=== PATIENT | male | born 1985 | race Caucasian/White ===

== ENCOUNTER 2023-10-26 02:41 | Emergency (ER) | payer SELFPAY ==
[~2023-10-26] VITALS: Ht 193 cm; Wt 140.9 kg
[~2023-10-26 02:41] MED LIST: TOPROL XL 25MG25 MG PO
[2023-10-26 02:54] VITALS: TEMP 97.9
[2023-10-26] MEDS ORDERED: Morphine 4 MG/ML VIAL IV ONE (03:00)
[2023-10-26] MEDS ORDERED: Ondansetron 4 MG/2 ML VIAL IV ONE (03:00)
[2023-10-26] MEDS ORDERED: NS 1,000 ML IV ONE ×2 (03:00→05:00)
[2023-10-26 03:04] LABS: BASO # 0.1 K/mm3 (0.0-0.2); BASO % 0.8 % (0.0-2.0); EOS # 0.3 K/mm3 (0.0-0.7); EOS % 3.2 % (0.0-4.0); GRAN # 4.7 K/mm3 (1.4-6.5); GRAN % 53.4 % (42.2-75.2); HEMATOCRIT 41.4 % (42.0-52.0); LYMPH # 2.7 K/mm3 (1.2-3.4); LYMPH % 30.5 % (20.0-51.0); MEAN CELL VOLUME 93 fl (80.0-100.0); MEAN CORPUSCULAR HEMOGLOBIN 29 pg (27-31); MEAN CORPUSCULAR HGB CONC 31 g/dl (33.0-37.0); MEAN PLATELET VOLUME 9.5 fl (7.4-10.4); MONO # 1.1 K/mm3 (0.1-0.6); PLATELET COUNT 326 K/mm3 (130-400); RED BLOOD COUNT 4.45 M/mm3 (4.20-5.60); REDCELL DISTRIBUTION WIDTH-CV 13.2 % (11.5-14.5)
[2023-10-26] MEDS ORDERED: Iohexol 300 - 100 ML VIAL IV ONE (03:19)
[2023-10-26] MEDS ORDERED: NS 50 ML IV SCH (03:19)
[2023-10-26 03:23] LABS: ALANINE AMINOTRANSFERASE 19 U/L (0-55); ALBUMIN 3.6 g/dL (3.5-5.0); ALKALINE PHOSPHATASE 90 U/L (40-150); ANION GAP 11 mmol/L (7-16); AST,SGOT 13 U/L (5-34); BILIRUBIN,TOTAL 0.3 mg/dL (0.2-1.2); BLOOD UREA NITROGEN 17 mg/dL (9-21); CALCIUM 9.4 mg/dL (8.4-10.2); CHLORIDE 110 mEq/L (98-107); CREATININE, serum 0.97 mg/dL (0.72-1.25); GLUCOSE 108 mg/dL (70-99); LIPASE 50 U/L (8-78); MAGNESIUM 1.9 mg/dL (1.6-2.6); POTASSIUM 3.5 mEq/L (3.5-4.5); SODIUM 144 mEq/L (136-145); TOTAL PROTEIN 7.8 g/dl (6.2-8.1)
[2023-10-26 03:31] LABS: TROPONIN-I < 0.010 ng/mL (0.00-0.033)
[2023-10-26] MEDS ORDERED: HYDROmorphone 0.5 MG/0.5 ML SYRINGE IV ONE (03:45)
[2023-10-26] MEDS ORDERED: Ketorolac 15 MG/ML VIAL IV ONE (04:00)
[2023-10-26] MEDS ORDERED: Amoxicillin/Clavulanate K+ 875/125 MG TAB PO ONE (04:00)
[2023-10-26] MEDS ORDERED: AMOXICILLIN 8751 TAB PO (05:24)
[2023-10-26 06:30] VITALS: BP 117/56; PULSE 58
== END 2023-10-26 06:42 | disposition home or self-care (01) ==
LOC: COL.ER 02:41
PROVIDERS: Emergency Medicine
DX: K52.9 Noninfective gastroenteritis and colitis, unspecified (principal)
CPT/HCPCS: J1170; J1885; J2270; J2405; J7030; Q9967